=== PATIENT | male | born 1960 | race Caucasian/White ===

== ENCOUNTER 2019-08-17 19:46 | Emergency (ER) | payer SELFPAY ==
[~2019-08-17] VITALS: Ht 182.9 cm; Wt 74.8 kg
[2019-08-17 19:50] VITALS: BP_SYST 146
[2019-08-17 21:36] VITALS: BP_SYST 135
== END 2019-08-17 21:36 ==
LOC: SED 19:46
DX: Z02.89 Encounter for other administrative examinations (principal)
CPT/HCPCS: 99283